=== PATIENT | female | born 2000 ===

== ENCOUNTER 2019-06-08 01:04 | Inpatient (IN) | payer OTHER ==
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
[2019-06-08] MEDS ORDERED: Charcoal ACTIVATED* 25 GM/120 ML BTL PO ONE (01:26)
[2019-06-08] MEDS ORDERED: Ondansetron ODT TAB* 4 MG SL ONE (01:26)
[2019-06-08 01:33] LABS: ABS Basophils 0.1 10^3/ul (0-0.2); ABS Eosinophils 0.1 10^3/ul (0-0.6); ABS Lymphocytes 2.5 10^3/ul (1.0-4.8); ABS Monocytes 0.6 10^3/ul (0-0.8); ABS Neutrophils 5.6 10^3/ul (1.5-7.7); Hematocrit 37 % (35-47); Hemoglobin 12.5 g/dL (12.0-16.0); Lymphocyte % 28.3 %; Mean Corpuscular HGB Conc 34 g/dL (31-36); Mean Corpuscular Hemoglobin 29 pg (27-31); Mean Corpuscular Volume 85 fL (80-97); Mean Platelet Volume 8.5 fL (7.4-10.4); Platelet Count 309 10^3/uL (150-450); Red Blood Count 4.35 10^6 /uL (3.70-4.87); Red Cell Distribution Width 13 % (10-15); White Blood Count 8.9 10^3/uL (3.5-10.8)
[2019-06-08 01:52] LABS: ALT 10 U/L (7-52); AST 14 U/L (13-39); Albumin 4.3 g/dL (3.2-5.2); Albumin/Globulin Ratio 1.6 (1-3); Alkaline Phosphatase 67 U/L (34-104); Anion Gap 7 mmol/L (2-11); BUN/Creatinine Ratio 17.2 (8-20); Blood Urea Nitrogen 11 mg/dL (6-24); CO2 Carbon Dioxide 27 mmol/L (22-32); Calcium 9.5 mg/dL (8.6-10.3); Chloride 102 mmol/L (101-111); EGFR African American 143.1 (>60); EGFR Non-African American 118.3 (>60); Globulin 2.7 g/dL (2-4); Glucose 107 mg/dL (70-100); Potassium 3.4 mmol/L (3.5-5.0); Sodium 136 mmol/L (135-145)
[2019-06-08 01:58] LABS: HCG Pregnancy 0.75 mIU/mL
[2019-06-08 02:10] LABS: Acetaminophen < 15 mcg/mL; Alcohol < 10 mg/dL (<10); Salicylate < 2.50 mg/dL (<30)
[2019-06-08 02:18] LABS: Urine Appearance Clear; Urine Bilirubin Negative (Negative); Urine Blood Negative (Negative); Urine Color Straw; Urine Glucose Negative (Negative); Urine Ketones Negative (Negative); Urine Nitrite Negative (Negative); Urine Protein Negative (Negative); Urine Specific Gravity 1.004 (1.010-1.030); Urine Urobilinogen Negative (Negative)
[2019-06-08 02:23] LABS: TSH (Thyroid Stimulating Horm) 1.85 mcIU/mL (0.34-5.60)
[2019-06-08 02:50] LABS: Urine Benzodiazepine Screen None Detected (None Detect); Urine Opiates Screen None Detected (None Detect)
--- OUTSIDE RECORDS SUMMARY | 2019-06-08 03:00 | XMS REPORT ---
:2000 Author Organization Mental [facility]- [facility] Care Team Providers Name Role Phone Sravanthi Ugarte Primary Care Physician Unavailable Allergies, Adverse Reactions, Alerts Allergy Code CodeSystem Reaction Severity Criticality Status Start Substance Date Moderate Medications Medication Medication Medication Start Stop Route Dose Status Fill Code CodeSystem Date Date Instructions RxNorm Relevant diagnostic tests/laboratory data Narrative No Information Procedures Procedure Code CodeSystem Target Date of Status Service Device Device Device Name Site Procedure Delivery Code Name UID Location Psychother [id number] SNOMED-CT () 2019-04-14 completed Mental apy, 45 4 Health- minutes [facility] with [address], [id number] Psychother [id number] SNOMED-CT () 2019-01-26 completed Mental apy, 45 4 Health- minutes [facility] with [facility] patient [address] [place] [address], [id number] Psychother [id number] SNOMED-CT () 2019-01-05 completed Mental apy, 45 4 Health- minutes M[facility]onald with [facility] patient [address] [place] [address], [id number] Psychother [id number] SNOMED-CT () 2019-02-01 completed Mental apy, 45 4 Health- minutes [facility] with [facility] patient [address] [place] [address], [id number] Psychother [id number] SNOMED-CT () 2019-02-08 completed Mental apy, 45 4 Health- minutes [facility] with [facility] patient [address] [place] [address], [id number] Psychother [id number] SNOMED-CT () 2019-02-23 completed Mental apy, 45 4 Health- minutes Mcdonald with [facility] patient [address] [place] [address], [id number] [id number] Psychother [id number] SNOMED-CT () 2019-02-19 completed Mental apy, 45 4 Health- minutes Mcdonald with [facility] patient [address] [place] [address], [id number] [id number] Psychother [id number] SNOMED-CT () 2019-03-01 completed Mental apy, 45 4 Health- minutes Mcdonald with [facility] patient [address] [place] [address], [id number] [id number] SNOMED-CT () 2019-03-08 completed Mental Health- [address], [id number] SNOMED-CT () 2019-01-22 completed Mental Health- [address], [id number] SNOMED-CT () 2018-12-02 completed Mental Health- [address], [id number] Encounters/Encounter Diagnoses Encounter Name Encounter Diagnosis Diagnosis Diagnosis Date of Service Code Code Name CodeSystem Diagnosis Delivery Location [facility] [address] SNOMED-CT 2019-05-12 Behavioral Individual [facility] , , , Vital Signs No Information Social History Element Description Description Start End Code CodeSystem AdditionalInfo Date Date SexAssignedAtBirth Female F AdministrativeGender 08-08 Hospital Discharge Instructions Reason For Referral Medical Equipment FDA Assessments
--- NOTE | 2019-06-08 07:23 | ED ---
Progress - Progress Note Progress Note: The patient is a sign-out from Dr. Myron Santiago MD, to Dr. Epifanio Marina DO, at change of shift at 0700 on 06/08/19, pending mental health hold and disposition for admission or transfer. Dr. Quiroz and mental health staff have evaluated the patient and determined that she is appropriate for admission. Course/Dx - Course Course Of Treatment: The patient is a sign-out from Dr. Myron Santiago MD, to Dr. Epifanio Marina DO, at change of shift at 0700 on 06/08/19, pending mental health hold and disposition for admission or transfer. Dr. Quiroz and mental health staff have evaluated the patient and determined that she is appropriate for admission. - Diagnoses Provider Diagnoses: Depressive disorder - Provider Notifications Discussed Care Of Patient With: Dedrick Quiroz - psychiatry Time Discussed With Above Provider: 10:15 Instructed by Provider To: Other - Dr. Quiroz and mental health staff have evaluated the patient and determined that she is appropriate for admission. Discharge ED - Sign-Out/Discharge Documenting (check all that apply): Receiving Sign-Out Receiving patient FROM: Myron Santiago - Patient is a sign-out from Dr. Myron Santiago MD, at change of shift at 0700 on 06/08/19, pending [facility] hold. - Discharge Plan Condition: Stable Disposition: PSYCHIATRIC FACILITY-[facility] Referrals: Jose A Pretty MD [Primary Care Provider] - - Billing Disposition and Condition Condition: STABLE Disposition: Psychiatric Facility [facility] - Attestation Statements Document Initiated by Scribe: Yes Documenting Scribe: Sandra Talley Provider For Whom Vivek is Documenting (Include Credential): Dr. Epifanio Marina DO Scribe Attestation: Sandra Skinner scribed for Dr. Epifanio Marina DO on 06/08/19 at 1246. Scribe Documentation Reviewed: Yes Provider Attestation: The documentation as recorded by the Sandra hutchison accurately reflects the service I personally performed and the decisions made by me, Dr. Epifanio Marina DO Status of Scribe Document: Viewed Procedures - Sedation Patient Received Moderate/Deep Sedation with Procedure: No
[2019-06-08] MEDS ORDERED: Al Hydrox/Mg Hydrox/Simet LIQ* 30 ML UDC PO PRN (10:46)
[2019-06-08] MEDS ORDERED: Acetaminophen TAB* 325 MG PO PRN (10:46)
[2019-06-08] MEDS ORDERED: hydrOXYzine HCL TAB* 50 MG PO PRN (10:47)
[2019-06-08] MEDS ORDERED: Ibuprofen TAB* 600 MG PO ONE (15:00)
[2019-06-08] MEDS ORDERED: Ibuprofen TAB* 600 MG ONE (15:12)
[2019-06-08] MEDS ORDERED: Ibuprofen TAB* 600 MG PO PRN (15:30)
[2019-06-08] MEDS ORDERED: Ondansetron ODT TAB* 4 MG PO PRN (15:30)
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
[2019-06-09 08:11] LABS: HDL Cholesterol 42.8 mg/dL
[2019-06-09] MEDS: Escitalopram * 10 MG TAB PO SCH (11:51)
--- NOTE | 2019-06-09 13:55 | PN ---
Subjective - Subjective Date of Service: 06/09/19 Service Type: 57128 Hosp care 25 min moderate complexity Subjective: 06/09/2019: Met with Kimberly in the milieu where she was working on an art project with the activity group. She agreed to meet, but was quiet and withdrawn for much of our meeting. She endorses feeling depressed, but denies suicidal ideation. We discussed trailing Lexapro to help with her depression, education was provided about the benefits and possible side effects of this medication. She agrees to give it a try. We discussed Hydroxyzine as well for insomnia. She' s forward looking, expressing a desire to "go back to the gym, keep myself busy , read again, and become more faithful". Objective - General Observations Appearance: Neat Appears Stated Age: Yes Stature: Overweight Posture: Slumped Eye Contact: Avoidant Behavior/Activity: Slowed - Interaction Observations Attitude Towards Examiner: Cooperative Stated Mood: Dysphoric Affect: Flat Speech Pattern/Tone: Delayed, Quiet Volume Thought Process: Coherent, Goal Directed Perception: WNL Thought Content: Depressive Hallucination Type: None Delusion Type: None - Cognitive Function Orientation: A&O x 4 Level of Consciousness: Awake, Alert, Appropriate Cognition: Impaired Fund of Knowledge Estimated Intelligence: Normal Insight: Difficulty Acknowledging Presence of Psyciatric Problems Judgment Within Normal Limits: No Ability to Make Reasonable Decisions: Moderately Impaired - Medication Compliance Cooperative with Inpatient Medication Regimen: Partial - Group Participation Participates in Group Activities: Partial Assessment - Assessment Merits Inpatient Hospitalization: For Immediate Safety Inpatient DSM-V Dx: F43.23 Clinical Impression: Kimberly is a 18-year-old woman of Oriental Orthodox descent diagnosed with adjustment disorder with anxious and depressed features who comes to the hospital following an overdose of Claritin, Vitamin D, and Tessalong pearls which was related to recent stressors of her boyfriend ignoring her and her family disowning her. Plan - Plan Treatment Plan: Name: SABINE ZABALA Birthdate: 2000 [id number] 06/09/2019: Trialing Lexapro. Monitor for depressed mood. Engage in groups. Use hydroxyzine for anxiety and insomnia. Continued Medication Management: Start Medication Medications: Current Medications Acetaminophen (Tylenol Tab*) 650 mg PO Q4H PRN PRN Reason: for pain; or Temp >101 F Al Hydrox/Mg Hydrox/Simethicone (Maalox Plus*) 30 ml PO Q4H PRN PRN Reason: INDIGESTION Escitalopram Oxalate (Lexapro *) 10 mg PO DAILY ROGER Last Admin: 06/09/19 11:51 Dose: 10 mg Hydroxyzine HCl (Atarax Tab*) 50 mg PO Q6H PRN PRN Reason: anxiety Ibuprofen (Motrin Tab*) 600 mg PO Q6H PRN PRN Reason: PAIN - MILD Ondansetron HCl (Zofran Odt Tab*) 4 mg PO Q6H PRN PRN Reason: NAUSEA - Discharge Plan Discharge Plan: Outpatient Follow Up Outpatient Program: [facility]
[2019-06-10] MEDS: Escitalopram * 10 MG TAB PO SCH (08:22)
[2019-06-10 09:43] VITALS: BP 124/59
== END 2019-06-10 12:00 | disposition home or self-care (01) | DRG 755 ==
LOC: ED 01:04 → BSU 10:46
PROVIDERS: ADMIT Psychiatry & Neurology Psychiatry; ATTEND Psychiatry & Neurology Psychiatry
DX: F43.23 Adjustment disorder with mixed anxiety and depressed mood (principal); T48.3X2A Poisoning by antitussives, intentional self-harm, initial encounter; T45.2X2A Poisoning by vitamins, intentional self-harm, initial encounter; G47.00 Insomnia, unspecified; T45.0X2A Poisoning by antiallergic and antiemetic drugs, intentional self-harm, initial encounter; Y92.009 Unspecified place in unspecified non-institutional (private) residence as the place of occurrence of the external cause
CPT/HCPCS: 36415; 80053; 80061; 80307; 80320; 80329; 81003; 83036; 84443; 84702; 85025; 93005; 99222; 99232; 99238; 99285; A9270-GY; G0480

== ENCOUNTER 2019-06-22 23:23 | Emergency (ER) | payer OTHER ==
--- OUTSIDE RECORDS SUMMARY | 2019-06-22 23:33 | XMS REPORT | Continuity of Care Document ---
:2000 External Reference #:[id number] Author Name Klaus Palmtherese CHAUDHARI, DO Address [address], [place] [address] Problems Description No Active Problems Social History Type Date Description Comments Sex Unknown Cigarette Use Does Not Smoke Cigarettes ETOH Use Does Not Drink Alcohol Recreational Drug Use Does Not Use Drugs Tobacco Use Start: Unknown Patient has never smoked Smoking Status Reviewed: 06/17/19 Patient has never smoked Seat Belt/Car Seat Always uses seat belt Allergies, Adverse Reactions, Alerts Description No Known Drug Allergies Medications Active Medications SIG Qnty Indications Ordering Date Provider Loratadine 1 by mouth daily as 90tabs Brenden Cisneros, 03/04/2019 10mg needed allergies, CNM Tablets congestion Mirena (52 MG) Unknown 20mcg/24HR IUD Flonase Allergy Unknown Relief 50mcg/Act Suspension Medications Administered in Office Medication SIG Qnty Indications Ordering Provider Date PT SCRN Tbco Id as Non User Brenden Cisneros, CNM 03/04/2019 Injection Immunizations Description No Information Available Vital Signs Date Vital Result Comment 06/17/2019 11:16am BP Systolic 124 mmHg BP Diastolic 58 mmHg Height 66 inches 5'6" Weight 209.00 lb BMI (Body Mass Index) 33.7 kg/m2 0 03/25/2019 11:03am BP Systolic 122 mmHg BP Diastolic 48 mmHg Height 66 inches 5'6" Weight 208.00 lb BMI (Body Mass Index) 33.6 kg/m2 0 Parity 0 Results Description No Information Available Procedures Date Code Description Status 06/17/2019 44549 Echography Transvaginal Completed 03/25/2019 36312 Echography Transvaginal Completed Medical Devices Description No Information Available Encounters Type Date Location Provider Dx Diagnosis Office Visit 06/17/2019 [facility] Klaus Alas JR, N83.209 Unspecified ovarian 10:30a DO cyst, unspecified side Office Visit 03/25/2019 [facility] Klaus Alas JR, N83.292 Other ovarian cyst, 11:00a DO left side Office Visit 03/04/2019 [facility] Brenden Cisneros, N83.209 Unspecified ovarian 2:00p CNM cyst, unspecified side Assessments Date Code Description Provider 06/17/2019 N83.209 Unspecified ovarian cyst, unspecified side Klaus Alas JR, DO 06/17/2019 N83.292 Other ovarian cyst, left side Ultrasounds 03/25/2019 R10.32 Left lower quadrant pain Klaus Alas JR, DO 03/25/2019 N83.292 Other ovarian cyst, left side Klaus Alas JR, DO 03/25/2019 R10.32 Left lower quadrant pain Ultrasounds 03/04/2019 N83.209 Unspecified ovarian cyst, unspecified side Brenden Cisneros CNM Plan of Treatment 03/25/2019 - Klaus Alas JR, DOR10.32 Left lower quadrant painN83.292 Other ovarian cyst, left sideComments:Pt has cyst on left ovary, most consistent in appearance with hemorrhagic cystPt is asymptomatic at this time and without complaintsHas Mirena IUD for contraceptionShe is hemodynamically stable and herabdominal exam is benignWill have RTO for repeat USN in 2-3 months to assess for resolutionHemorrhage, anemia, infectious precautions reviewed Functional Status Description No Information Available Mental Status Description No Information Available Referrals Description No Information Available
[2019-06-23 01:04] LABS: ABS Basophils 0.1 10^3/ul (0-0.2); ABS Eosinophils 0.1 10^3/ul (0-0.6); ABS Lymphocytes 3.9 10^3/ul (1.0-4.8); ABS Monocytes 0.6 10^3/ul (0-0.8); ABS Neutrophils 4.5 10^3/ul (1.5-7.7); Eosinophil % 1.6 %; Hematocrit 34 % (35-47); Hemoglobin 11.7 g/dL (12.0-16.0); Lymphocyte % 42.2 %; Mean Corpuscular HGB Conc 34 g/dL (31-36); Mean Corpuscular Hemoglobin 29 pg (27-31); Mean Corpuscular Volume 86 fL (80-97); Mean Platelet Volume 8.3 fL (7.4-10.4); Nucleated Red Blood Cells % 0.1; Platelet Count 328 10^3/uL (150-450); Red Cell Distribution Width 13 % (10-15); White Blood Count 9.2 10^3/uL (3.5-10.8)
[2019-06-23] MEDS ORDERED: HYDROcodone/ACETAMIN 5-325 MG* 1 TAB PO ONE (01:07)
[2019-06-23 01:23] LABS: ALT 12 U/L (7-52); AST 14 U/L (13-39); Albumin 3.9 g/dL (3.2-5.2); Albumin/Globulin Ratio 1.5 (1-3); Alkaline Phosphatase 56 U/L (34-104); Anion Gap 7 mmol/L (2-11); BUN/Creatinine Ratio 22.1 (8-20); Blood Urea Nitrogen 15 mg/dL (6-24); C Reactive Protein 2.57 mg/L (<8.01); CO2 Carbon Dioxide 26 mmol/L (22-32); Chloride 104 mmol/L (101-111); EGFR African American 133.5 (>60); EGFR Non-African American 110.3 (>60); Globulin 2.6 g/dL (2-4); Glucose 109 mg/dL (70-100); Potassium 3.9 mmol/L (3.5-5.0); Sodium 137 mmol/L (135-145); Total Protein 6.5 g/dL (6.4-8.9)
[2019-06-23 01:28] LABS: HCG Pregnancy < 0.60 mIU/mL
--- NOTE | 2019-06-23 02:08 | ED ---
GI/ HPI - HPI Summary HPI Summary: 18-year-old presents with abdominal pain. pain is in left lower quadrant. She denies any nausea or vomiting. No diarrhea constipation. Denies any urinary symptoms. She states that she has a history of ovarian cysts. States this feels the same. Took some ibuprofen prior to arrival. pain is 8 out of 10. Has an IUD. She denies any previous abdominal surgeries. Has no medical conditions. - History of Current Complaint Chief Complaint: EDAbdPain Time Seen by Provider: 06/23/19 00:18 Stated Complaint: LEFT SIDED PAIN PER PT Pain Intensity: 8 - Additional Pertinent History Primary Care Physician: [id number] - Allergy/Home Medications Allergies/Adverse Reactions: Allergies Allergy/AdvReac Type Severity Reaction Status Date / Time No Known Allergies Allergy Verified 06/08/19 01:31 PMH/Surg Hx/FS Hx/Imm Hx Endocrine/Hematology History: Denies: Hx Diabetes Cardiovascular History: Denies: Hx Hypertension Respiratory History: Denies: Hx Asthma Sensory History: Reports: Hx Contacts or Glasses Denies: Hx Hearing Aid Opthamlomology History: Reports: Hx Contacts or Glasses Neurological History: Reports: Hx Migraine - states that she uses excedrin or ibuprofen to tx Psychiatric History: Reports: Hx Community Mental Health Tx, Hx Suicide Attempt , Other Psychiatric Issues/Disorders - hx of self injury Denies: Hx Eating Disorder, Hx Depression, Hx Post Traumatic Stress Disorder , Hx Schizophrenia, Hx Bipolar Disorder - Cancer History Hx Chemotherapy: No Hx Radiation Therapy: No - Surgical History Surgery Procedure, Year, and Place: tonsilectomy - Immunization History Date of Tetanus Vaccine: between 5-10 years Infectious Disease History: No Infectious Disease History: Denies: Traveled Outside the [place] in Last 30 Days - Family History Known Family History: Positive: Unknown - states that she does not talk to her parents anymore - Social History Alcohol Use: None Hx Substance Use: No Substance Use Type: Reports: None Hx Tobacco Use: No Smoking Status (MU): Never Smoked Tobacco Review of Systems Negative: Fever Negative: Chest Pain Negative: Shortness Of Breath Positive: Abdominal Pain. Negative: Vomiting, Diarrhea, Nausea All Other Systems Reviewed And Are Negative: Yes Physical Exam Triage Information Reviewed: Yes Vital Signs On Initial Exam: Initial Vitals Temp Pulse Resp BP Pulse Ox 98.9 F 82 20 119/72 99 06/22/19 23:24 06/22/19 23:24 06/22/19 23:24 06/22/19 23:24 06/22/19 23:24 Vital Signs Reviewed: Yes Appearance: Positive: Well-Appearing Skin: Positive: Warm, Dry Head/Face: Positive: Normal Head/Face Inspection Eyes: Positive: Normal, Conjunctiva Clear ENT: Positive: Pharynx normal Respiratory/Lung Sounds: Positive: Clear to Auscultation, Breath Sounds Present Cardiovascular: Positive: Normal, RRR Abdomen Description: Positive: Soft, Other: - tenderness in LLQ Bowel Sounds: Positive: Present Musculoskeletal: Positive: Normal Neurological: Positive: Normal Psychiatric: Positive: Normal Procedures - Sedation Patient Received Moderate/Deep Sedation with Procedure: No Diagnostics - Vital Signs Vital Signs Temp Pulse Resp BP Pulse Ox 06/23/19 00:54 124/61 06/23/19 00:35 87 99 06/23/19 00:24 88 118/53 99 06/22/19 23:24 98.9 F 82 20 119/72 99 - Laboratory Lab Results: Lab Results 06/23/19 06/23/19 Range/Units 00:50 00:50 WBC 9.2 (3.5-10.8) 10^3/uL RBC 4.00 (3.70-4.87) 10^6 /uL Hgb 11.7 L (12.0-16.0) g/dL Hct 34 L (35-47) % MCV 86 (80-97) fL MCH 29 (27-31) pg MCHC 34 (31-36) g/dL RDW 13 (10-15) % Plt Count 328 (150-450) 10^3/uL MPV 8.3 (7.4-10.4) fL Neut % (Auto) 49.1 % Lymph % (Auto) 42.2 % [place] % (Auto) 6.2 % Eos % (Auto) 1.6 % Baso % (Auto) 0.9 % Absolute Neuts (auto) 4.5 (1.5-7.7) 10^3/ul Absolute Lymphs (auto) 3.9 (1.0-4.8) 10^3/ul Absolute Monos (auto) 0.6 (0-0.8) 10^3/ul Absolute Eos (auto) 0.1 (0-0.6) 10^3/ul Absolute Basos (auto) 0.1 (0-0.2) 10^3/ul Absolute Nucleated RBC 0.0 10^3/ul Nucleated RBC % 0.1 Sodium 137 (135-145) mmol/L Potassium 3.9 (3.5-5.0) mmol/L Chloride 104 (101-111) mmol/L Carbon Dioxide 26 (22-32) mmol/L Anion Gap 7 (2-11) mmol/L BUN 15 (6-24) mg/dL Creatinine 0.68 (0.51-0.95) mg/dL Est GFR ( Amer) 133.5 (>60) Est GFR (Non-Af Amer) 110.3 (>60) BUN/Creatinine Ratio 22.1 H (8-20) Glucose 109 H (70-100) mg/dL Calcium 9.0 (8.6-10.3) mg/dL Total Bilirubin 0.20 (0.2-1.0) mg/dL AST 14 (13-39) U/L ALT 12 (7-52) U/L Alkaline Phosphatase 56 (34-104) U/L C-Reactive Protein 2.57 (<8.01) mg/L Total Protein 6.5 (6.4-8.9) g/dL Albumin 3.9 (3.2-5.2) g/dL Globulin 2.6 (2-4) g/dL Albumin/Globulin Ratio 1.5 (1-3) Lipase 22 (11.0-82.0) U/L Beta HCG, Quant < 0.60 mIU/mL Result Diagrams: 06/23/19 00:50 06/23/19 00:50 Lab Statement: Any lab studies that have been ordered have been reviewed, and results considered in the medical decision making process. - Ultrasound No standard instances Ultrasound Interpretation Completed By: Radiologist Summary of Ultrasound Findings: IMPRESSION: 1. Small left ovarian hemorrhagic cyst. No followup imaging indicated per ACR guidelines. 2. Well-positioned IUD. Re-Evaluation - Re-Evaluation First Eval Re-Evaluation Time: 02:06 Change: Improved Comment: feeling better GIGU Course/Dx - Course Course Of Treatment: 18-year-old presents with abdominal pain. pain is in left lower quadrant. She denies any nausea or vomiting. No diarrhea constipation. Denies any urinary symptoms. She states that she has a history of ovarian cysts. States this feels the same. Took some ibuprofen prior to arrival. pain is 8 out of 10. Has an IUD. She denies any previous abdominal surgeries. Has no medical conditions. On exam tenderness left lower quadrant. White count normal. CRP normal. Ultrasound shows hemorrhagic cyst. will place on short course of pain medication. Patient understands and agrees with the plan. - Diagnoses Differential Diagnoses - Female: Ovarian Cyst, Ovarian Torsion, Urinary Tract Infection Provider Diagnoses: Ovarian cyst Discharge ED - Sign-Out/Discharge Documenting (check all that apply): Patient Departure - Discharge Plan Condition: Good Disposition: HOME Prescriptions: HYDROcodone/ACETAMIN 5-325 MG* [[place] 5-325 TAB*] 1 tab PO Q6H PRN #8 tab MDD 4 PRN Reason: Pain - Severe Patient Education Materials: Ruptured Ovarian Cyst (ED) Forms: *Work Release Referrals: Jose A Pretty MD [Primary Care Provider] - Additional Instructions: Take ibuprofen or Tylenol every 6 hours as needed for pain, use norco for breakthrough pain every 6 hours apply heat Follow up with venereal disease control head Return to ED if develop any new or worsening symptoms - Billing Disposition and Condition Condition: GOOD Disposition: Home
[2019-06-23 02:30] VITALS: BP 123/54
[2019-06-23 02:49] LABS: Urine Appearance Turbid; Urine Bilirubin Negative (Negative); Urine Blood Negative (Negative); Urine Color Yellow; Urine Glucose Negative (Negative); Urine Ketones Negative (Negative); Urine Nitrite Negative (Negative); Urine Protein Negative (Negative); Urine Specific Gravity 1.031 (1.010-1.030); Urine Urobilinogen Negative (Negative)
== END 2019-06-23 02:29 | disposition home or self-care (01) ==
LOC: ED 23:23
DX: N83.202 Unspecified ovarian cyst, left side (principal); Z97.5 Presence of (intrauterine) contraceptive device; G43.909 Migraine, unspecified, not intractable, without status migrainosus
CPT/HCPCS: 36415; 76830; 80053; 81003; 83690; 84702; 85025; 86140; 99283

== ENCOUNTER 2019-06-29 12:16 | Emergency (ER) | payer OTHER ==
[2019-06-29 13:28] LABS: ABS Basophils 0.1 10^3/ul (0-0.2); ABS Eosinophils 0.1 10^3/ul (0-0.6); ABS Lymphocytes 2.7 10^3/ul (1.0-4.8); ABS Monocytes 0.5 10^3/ul (0-0.8); ABS Neutrophils 3.7 10^3/ul (1.5-7.7); Hematocrit 34 % (35-47); Hemoglobin 11.9 g/dL (12.0-16.0); Lymphocyte % 37.8 %; Mean Corpuscular HGB Conc 35 g/dL (31-36); Mean Corpuscular Hemoglobin 29 pg (27-31); Mean Corpuscular Volume 85 fL (80-97); Mean Platelet Volume 8.4 fL (7.4-10.4); Platelet Count 318 10^3/uL (150-450); Red Blood Count 4.06 10^6 /uL (3.70-4.87); Red Cell Distribution Width 14 % (10-15)
[2019-06-29 13:50] LABS: Albumin 4.2 g/dL (3.2-5.2); Albumin/Globulin Ratio 1.6 (1-3); BUN/Creatinine Ratio 19.3 (8-20); Calcium 9.3 mg/dL (8.6-10.3); EGFR African American 163.6 (>60); EGFR Non-African American 135.2 (>60); Globulin 2.6 g/dL (2-4); Potassium 4.1 mmol/L (3.5-5.0); Total Bilirubin 0.6 mg/dL (0.2-1.0); Total Protein 6.8 g/dL (6.4-8.9)
[2019-06-29 14:21] VITALS: BP 135/62
--- NOTE | 2019-06-29 14:29 | ED ---
Dizziness - HPI Summary HPI Summary: Patient is a 18 y/o F presenting to [facility] with complaints of dizziness, nausea, GAINES, blurred vision. She states that she had Sx onset after drinking a frappuccino four days ago and after consuming a drink with a calorie free sugar replacement today. Co-worker had told the patient that these Sx could indicate that she is pre-diabetic. As a result, she came to the ED for evaluation. Patient also reports Hx of slight anemia. No CP, abdominal pain, SOB, N/V, pain/ swelling in her legs noted. She notes that she had URI Sx recently that have since resolved. Patient is on Lexapro and Mirena IUD. Mother is pre-diabetic as well. Patient also states that she has an appointment with her PCP in two days. Home medications and allergies are reviewed. Home Medications Medication Instructions Recorded Confirmed Type Escitalopram * [Lexapro 10 mg (NF)] 10 mg PO DAILY #30 tab 06/10/19 06/29/19 Rx hydrOXYzine HCL TAB* [Atarax TAB 50 mg PO Q6H PRN #30 tab 06/10/19 06/29/19 Rx 50 MG *] HYDROcodone/ACETAMIN 5-325 MG* 1 tab PO Q6H PRN #8 tab MDD 4 06/23/19 06/29/19 Rx [[place] 5-325 TAB*] Cholecalciferol (Vitamin D3) 1 cap PO DAILY 06/29/19 06/29/19 History [Vitamin D3] Loratadine 10 mg PO DAILY PRN 06/29/19 06/29/19 History Multivitamin [Once Daily] 1 tab PO DAILY 06/29/19 06/29/19 History - History Of Current Complaint Chief Complaint: EDDizziness Stated Complaint: NAUSEA/HEADACHE PER PT Time Seen by Provider: 06/29/19 12:53 Hx Obtained From: Patient Timing: Days Character: Dizzy Associated Signs And Symptoms: Positive: Nausea, Visual Changes - positive - GAINES ; negative -, Other: - negative - pain/swelling BLE. Negative: Vomiting, Chest Pain, SOB - Allergies/Home Medications Allergies/Adverse Reactions: Allergies Allergy/AdvReac Type Severity Reaction Status Date / Time No Known Allergies Allergy Verified 06/29/19 13:02 Home Medications: Home Medications Escitalopram * [Lexapro 10 mg (NF)] 10 mg PO DAILY #30 tab 02/06/20 [Rx Confirmed 06/29/19] hydrOXYzine HCL TAB* [Atarax TAB 50 MG *] 50 mg PO Q6H PRN #30 tab 06/10/19 [Rx Confirmed 06/29/19] HYDROcodone/ACETAMIN 5-325 MG* [[place] 5-325 TAB*] 1 tab PO Q6H PRN #8 tab MDD 4 06/23/19 [Rx Confirmed 06/29/19] Cholecalciferol (Vitamin D3) [Vitamin D3] 1 cap PO DAILY 06/29/19 [History Confirmed 06/29/19] Loratadine 10 mg PO DAILY PRN 06/29/19 [History Confirmed 06/29/19] Multivitamin [Once Daily] 1 tab PO DAILY 06/29/19 [History Confirmed 06/29/19] PMH/Surg Hx/FS Hx/Imm Hx Endocrine/Hematology History: Denies: Hx Diabetes Cardiovascular History: Denies: Hx Hypertension Respiratory History: Denies: Hx Asthma Sensory History: Reports: Hx Contacts or Glasses Denies: Hx Hearing Aid Opthamlomology History: Reports: Hx Contacts or Glasses Neurological History: Reports: Hx Migraine - states that she uses excedrin or ibuprofen to tx Psychiatric History: Reports: Hx Community Mental Health Tx, Hx Suicide Attempt , Other Psychiatric Issues/Disorders - hx of self injury Denies: Hx Eating Disorder, Hx Depression, Hx Post Traumatic Stress Disorder , Hx Schizophrenia, Hx Bipolar Disorder - Cancer History Hx Chemotherapy: No Hx Radiation Therapy: No - Surgical History Surgery Procedure, Year, and Place: tonsilectomy - Immunization History Date of Tetanus Vaccine: between 5-10 years Infectious Disease History: No Infectious Disease History: Denies: Traveled Outside the [place] in Last 30 Days - Family History Known Family History: Positive: Diabetes - mother is pre-diabetic - Social History Alcohol Use: None Hx Substance Use: No Substance Use Type: Reports: None Hx Tobacco Use: No Smoking Status (MU): Never Smoked Tobacco Review of Systems Positive: Blurred Vision Negative: Chest Pain Negative: Shortness Of Breath Positive: Nausea. Negative: Abdominal Pain, Vomiting Negative: Myalgia, Edema Neurological/Mental Status: Other - positive - dizziness Positive: Headache All Other Systems Reviewed And Are Negative: Yes Physical Exam - Summary Physical Exam Summary: Constitutional: Well-developed, Well-nourished, Alert. (-) Distressed Skin: Warm, Dry HENT: Normocephalic; Atraumatic Eyes: Conjunctiva normal Neck: Musculoskeletal ROM normal neck. (-) JVD, (-) Stridor, (-) Tracheal deviation Cardio: Rhythm regular, rate normal, Heart sounds normal; Intact distal pulses; The pedal pulses are 2+ and symmetric. Radial pulses are 2+ and symmetric. (-) Murmur Pulmonary/Chest wall: Effort normal. (-) Respiratory distress, (-) Wheezes, (-) Rales Abd: Soft, (-) tenderness, (-) Distension, (-) Guarding, (-) Rebound Musculoskeletal: (-) Edema Lymph: (-) Cervical adenopathy Neuro: Alert, Oriented x3 Psych: Mood and affect Normal Triage Information Reviewed: Yes Vital Signs On Initial Exam: Initial Vitals Temp Pulse Resp BP Pulse Ox 97.8 F 86 18 132/54 99 06/29/19 12:25 06/29/19 12:25 06/29/19 12:25 06/29/19 12:25 06/29/19 12:25 Vital Signs Reviewed: Yes Procedures - Sedation Patient Received Moderate/Deep Sedation with Procedure: No Diagnostics - Vital Signs Vital Signs Temp Pulse Resp BP Pulse Ox 06/29/19 14:20 97.9 F 78 14 135/62 99 06/29/19 12:25 97.8 F 86 18 132/54 99 - Laboratory Lab Results: Lab Results 06/29/19 06/29/19 06/29/19 Range/Units 13:01 13:21 13:21 WBC 7.0 (3.5-10.8) 10^3/uL RBC 4.06 (3.70-4.87) 10^6 /uL Hgb 11.9 L (12.0-16.0) g/dL Hct 34 L (35-47) % MCV 85 (80-97) fL MCH 29 (27-31) pg MCHC 35 (31-36) g/dL RDW 14 (10-15) % Plt Count 318 (150-450) 10^3/uL MPV 8.4 (7.4-10.4) fL Neut % (Auto) 53.2 % Lymph % (Auto) 37.8 % [place] % (Auto) 7.1 % Eos % (Auto) 1.0 % Baso % (Auto) 0.9 % Absolute Neuts (auto) 3.7 (1.5-7.7) 10^3/ul Absolute Lymphs (auto) 2.7 (1.0-4.8) 10^3/ul Absolute Monos (auto) 0.5 (0-0.8) 10^3/ul Absolute Eos (auto) 0.1 (0-0.6) 10^3/ul Absolute Basos (auto) 0.1 (0-0.2) 10^3/ul Absolute Nucleated RBC 0.0 10^3/ul Nucleated RBC % 0.0 Sodium 138 (135-145) mmol/L Potassium 4.1 (3.5-5.0) mmol/L Chloride 104 (101-111) mmol/L Carbon Dioxide 28 (22-32) mmol/L Anion Gap 6 (2-11) mmol/L BUN 11 (6-24) mg/dL Creatinine 0.57 (0.51-0.95) mg/dL Est GFR ( Amer) 163.6 (>60) Est GFR (Non-Af Amer) 135.2 (>60) BUN/Creatinine Ratio 19.3 (8-20) Glucose 104 H (70-100) mg/dL POC Glucose (mg/dL) 97 (70-100) mg/dL Calcium 9.3 (8.6-10.3) mg/dL Total Bilirubin 0.60 (0.2-1.0) mg/dL AST 15 (13-39) U/L ALT 10 (7-52) U/L Alkaline Phosphatase 54 (34-104) U/L Total Protein 6.8 (6.4-8.9) g/dL Albumin 4.2 (3.2-5.2) g/dL Globulin 2.6 (2-4) g/dL Albumin/Globulin Ratio 1.6 (1-3) Result Diagrams: 06/29/19 13:21 06/29/19 13:21 Lab Statement: Any lab studies that have been ordered have been reviewed, and results considered in the medical decision making process. - EKG 1300 Cardiac Rate: NL - rate of 74 BPM EKG Rhythm: Sinus Rhythm Summary of EKG Findings: EKG showed sinus rhythm with rate of 74 BPM, no ischemic changes. ED physician has reviewed and interpreted this EKG. Dizzy Course/Dx - Course Course Of Treatment: Patient is a 18 y/o F presenting to [facility] with complaints of dizziness, nausea, GAINES, blurred vision. She states that she had Sx onset after drinking a frappuccino four days ago and after consuming a drink with a calorie free sugar replacement today. Co-worker had told the patient that these Sx could indicate that she is pre-diabetic. As a result, she came to the ED for evaluation. Patient also reports Hx of slight anemia. No CP, abdominal pain, SOB , N/V, pain/swelling in her legs noted. She notes that she had URI Sx recently that have since resolved. Physical exam was unremarkable. EKG showed sinus rhythm with rate of 74 BPM, no ischemic changes noted. UA was negative. Bloodwork was within normal limits with exception of Hgb 11.9, Hct 34, glucose 104. Patient was discharged to home and will follow up with her PCP through her already scheduled appointment. - Diagnoses Provider Diagnoses: Dizziness Discharge ED - Sign-Out/Discharge Documenting (check all that apply): Patient Departure - discharge - Discharge Plan Condition: Stable Disposition: HOME Patient Education Materials: Dizziness (ED) Forms: *Work Release Referrals: Jose A Pretty MD [Primary Care Provider] - 2 Days Additional Instructions: PLEASE RETURN FOR ANY NEW OR CONCERNING SYMPTOMS. PLEASE FOLLOW UP WITH YOUR PRIMARY CARE PHYSICIAN IN TWO DAYS. - Billing Disposition and Condition Condition: STABLE Disposition: Home - Attestation Statements Document Initiated by Vivek: Yes Documenting Scribe: ALEXIS OLIVER Provider For Whom Vivek is Documenting (Include Credential): ALF WATTERS DO Scribe Attestation: ALEXIS Skinner scribed for ALF WATTERS DO on 06/29/19 at 1922. Scribe Documentation Reviewed: Yes Provider Attestation: The documentation as recorded by the ALEXIS hutchison accurately reflects the service I personally performed and the decisions made by ALF muñoz DO Status of Scribe Document: Viewed
[2019-06-29 14:41] LABS: Urine Appearance Clear; Urine Bilirubin Negative (Negative); Urine Blood Negative (Negative); Urine Color Straw; Urine Glucose Negative (Negative); Urine Ketones Negative (Negative); Urine Nitrite Negative (Negative); Urine Protein Negative (Negative); Urine Specific Gravity 1.006 (1.010-1.030); Urine Urobilinogen Negative (Negative)
== END 2019-06-29 14:20 | disposition home or self-care (01) ==
LOC: ED 12:16
DX: R42 Dizziness and giddiness (principal); R11.0 Nausea; H53.8 Other visual disturbances; R51 Headache; Z79.899 Other long term (current) drug therapy
CPT/HCPCS: 36415; 80053; 81003; 83036; 85025; 93005; 99282